=== PATIENT | female | born 1985 | race Hispanic/Latino ===

== ENCOUNTER 2017-12-10 08:25 | Emergency (ER) | payer BC, OTHER ==
[2017-12-10] MEDS ORDERED: SODIUM CHLORIDE 0.9% 1000ML 1,000 ML IV ONE (10:06)
[2017-12-10] MEDS ORDERED: LORAZEPAM 2 MG/ML 1 ML VIAL ONE (10:07)
[2017-12-10] MEDS ORDERED: ONDANSETRON HCL 4 MG/2 ML VIAL ONE (10:10)
[2017-12-10] MEDS ORDERED: FAMOTIDINE/PF 20 MG/2 ML VIAL IV ONE (10:10)
[2017-12-10 10:11] LABS: BASOPHILS % (AUTO) 1.1 % (0.0-5.0); EOSINOPHILS % (AUTO) 0.2 % (0.0-8.0); HEMATOCRIT 41.3 % (36-48); LYMPHOCYTES % (AUTO) 19.7 % (21.0-51.0); MEAN CORPUSCULAR HEMOGLOBIN 28.9 pg (27.0-33.0); MEAN CORPUSCULAR HGB CONC 33.5 g/dL (32.0-36.0); MEAN CORPUSCULAR VOLUME 86.3 fL (79-99); MONOCYTES % (AUTO) 4.8 % (3.0-13.0); NEUTROPHILS % (AUTO) 74.2 % (40.0-77.0); PLATELET COUNT (AUTO) 374 K/uL (130-400); RED BLOOD CELL COUNT(AUTO) 4.78 MIL/uL (4.00-5.50); RED CELL DISTRIBUTION WIDTH 13.7 % (11.0-15.5); WHITE BLOOD COUNT (AUTO) 12.3 K/uL (4.8-10.8)
[2017-12-10 10:19] LABS: POTASSIUM 3.9 mmol/L (3.5-5.1)
[2017-12-10 10:26] LABS: ALBUMIN 3.7 g/dL (3.5-5.0); BILIRUBIN,TOTAL 0.5 mg/dL (0.2-1.0); TOTAL PROTEIN, SERUM 7.6 g/dL (6.0-8.3)
[2017-12-10 11:00] LABS: APPEARANCE,URINE Clear (CLEAR); BILIRUBIN,URINE Negative (NEGATIVE); COLOR,URINE Yellow (YELLOW); GLUCOSE, URINE (UA) Negative (NEGATIVE); KETONES,URINE Trace mg/dL (NEGATIVE); LEUKOCYTE ESTERASE ,URINE Negative (NEGATIVE); NITRATE,URINE Negative (NEGATIVE); OCCULT BLOOD,URINE Negative (NEGATIVE); PH,URINE 5.5 (5.0-8.0); PROTEIN,URINE Negative (NEGATIVE); UROBILINOGEN,URINE 0.2 mg/dL (0.2-1.0)
[2017-12-10 11:07] LABS: HCG,QUAL RESULT NEGATIVE (NEGATIVE)
[2017-12-10 11:13] LABS: BACTERIA,URINE Rare /HPF (None Seen); MUCUS,URINE Few LPF (None Seen); SQUAMOUS EPITHELIAL CELL,UR Few /HPF (0-2); WBC,URINE 0-1 /HPF (0-1)
== END 2017-12-10 13:11 | disposition home or self-care (01) ==
LOC: EDH 08:25
DX: R07.89 Other chest pain (principal); K22.4 Dyskinesia of esophagus; K29.70 Gastritis, unspecified, without bleeding; F14.10 Cocaine abuse, uncomplicated; Z98.890 Other specified postprocedural states; Z72.0 Tobacco use
CPT/HCPCS: 36415; 71046; 80053; 81001; 81025; 84484 ×2; 85025; 93005 ×2; 96361; 96374; 96375; 99285; J2060; J2405; J3490; J7030

== ENCOUNTER 2021-05-26 15:48 | Emergency (ER) | payer BC, MEDICAID ==
[~2021-05-26] VITALS: Ht 165.1 cm; Wt 99.8 kg
[2021-05-26 16:21] VITALS: BP 112/74
[2021-05-26] MEDS ORDERED: DEXAMETHASONE SOD PHOSPHATE 4 MG/ML 1ML VIAL IM SCH (16:30)
[2021-05-26] MEDS ORDERED: HYDROCODONE/ACETAMINOPHEN 5/325 MG TAB PO ONE (16:30)
[2021-05-26 16:46] LABS: MEAN CORPUSCULAR HEMOGLOBIN 29.9 pg (27.0-33.0); MEAN CORPUSCULAR HGB CONC 32.8 g/dL (32.0-36.0); MEAN CORPUSCULAR VOLUME 91.1 fL (79-99); PLATELET COUNT (AUTO) 410 K/uL (130-400); RED BLOOD CELL COUNT(AUTO) 4.72 MIL/uL (4.00-5.50); WHITE BLOOD COUNT (AUTO) 8.5 K/uL (4.8-10.8)
[2021-05-26 17:05] LABS: CREATININE 1.2 mg/dL (0.5-1.5); POTASSIUM 4.6 mmol/L (3.5-5.1)
[2021-05-26 17:11] LABS: BASOPHILS % (MANUAL) 2 % (0-2); EOSINOPHILS % (MANUAL) 3 % (1-6); LYMPHOCYTES % (MANUAL) 23 % (22-44); MAN.DIFF COMMENT-IMPRESSION MANUAL DIFFERENTIAL; MONOCYTES % (MANUAL) 4 % (2-9); SEGMENTED NEUTROPHILS % 68 % (40-70)
[2021-05-26 17:12] LABS: PLATELET MORPHOLOGY COMMENT SLIGHT INCREASED
[2021-05-26] MEDS ORDERED: METH4TAB PO (17:18)
[2021-05-26] MEDS ORDERED: ACET1TAB25 PO (17:18)
[2021-05-26] MEDS ORDERED: CYCL10TA16 PO (17:18)
[2021-05-26] MEDS ORDERED: IBUP-2070 PO (17:18)
[2021-05-27] MEDS ORDERED: ACET1TAB25 PO (12:15)
== END 2021-05-26 17:32 | disposition home or self-care (01) ==
LOC: EDH 15:48 → EDBD 15:48 → EDUNIT# 15:48 → EDH 17:32
DX: M54.50 Low back pain, unspecified (principal); M54.2 Cervicalgia; F41.9 Anxiety disorder, unspecified
CPT/HCPCS: 36415; 72125; 74176; 80048; 81025; 85025; 96372; 99284; J1100

== ENCOUNTER 2021-05-27 08:44 | Emergency (ER) | payer MEDICAID ==
[~2021-05-27] VITALS: Ht 165.1 cm; Wt 99.8 kg
[~2021-05-27 08:44] MED LIST: ACET1TAB25 PO; CYCL10TA16 PO; IBUP-2070 PO; METH4TAB PO
[2021-05-27] MEDS ORDERED: HYDROCODONE/ACETAMINOPHEN 5/325 MG TAB PO SCH (09:30)
[2021-05-27] MEDS ORDERED: ACET1TAB25 PO (12:15)
[2021-05-27] MEDS ORDERED: KETOROLAC 30MG VIAL (30MG/ML) IM SCH (12:30)
[2021-05-27 12:58] VITALS: BP 136/84
== END 2021-05-27 13:02 | disposition home or self-care (01) ==
LOC: EDH 08:44
DX: M51.36 Other intervertebral disc degeneration, lumbar region (principal); F41.9 Anxiety disorder, unspecified; Z79.1 Long term (current) use of non-steroidal anti-inflammatories (NSAID); Z79.52 Long term (current) use of systemic steroids
CPT/HCPCS: 72148; 96372; 99284; J1885

== ENCOUNTER 2021-06-12 11:41 | Emergency (ER) | payer MEDICAID ==
[~2021-06-12] VITALS: Ht 165.1 cm; Wt 99.8 kg
[2021-06-12] MEDS ORDERED: FENTANYL 50 MCG/HR PATCH TD SCH (13:00)
[2021-06-12] MEDS ORDERED: NAPR-1180 PO (13:05)
[2021-06-12] MEDS ORDERED: CYCL10TA16 PO (13:05)
[2021-06-12 13:46] VITALS: BP 138/81
== END 2021-06-12 13:53 | disposition home or self-care (01) ==
LOC: EDH 11:41
DX: M54.50 Low back pain, unspecified (principal); G89.29 Other chronic pain; F41.9 Anxiety disorder, unspecified; Z79.899 Other long term (current) drug therapy

== ENCOUNTER 2022-03-04 09:45 | Emergency (ER) | payer BC, MEDICAID ==
[~2022-03-04] VITALS: Ht 165.1 cm; Wt 105.7 kg
[~2022-03-04 09:45] MED LIST changes: +ACET-2079 PO; -ACET1TAB25 PO; +NAPR-1180 PO
[2022-03-04 10:14] LABS: BASOPHILS % (AUTO) 0.5 % (0.0-5.0); EOSINOPHILS % (AUTO) 3.2 % (0.0-8.0); HEMATOCRIT 42.8 % (36-48); LYMPHOCYTES % (AUTO) 31.4 % (21.0-51.0); MEAN CORPUSCULAR HEMOGLOBIN 29.2 pg (27.0-33.0); MEAN CORPUSCULAR HGB CONC 33.9 g/dL (32.0-36.0); MEAN CORPUSCULAR VOLUME 86.3 fL (79-99); MONOCYTES % (AUTO) 5.9 % (3.0-13.0); NEUTROPHILS % (AUTO) 58.6 % (40.0-77.0); PLATELET COUNT (AUTO) 420 K/uL (130-400); RED BLOOD CELL COUNT(AUTO) 4.96 MIL/uL (4.00-5.50); RED CELL DISTRIBUTION WIDTH 13.2 % (11.0-15.5); WHITE BLOOD COUNT (AUTO) 8.1 K/uL (4.8-10.8)
[2022-03-04 10:20] LABS: POTASSIUM 4.4 mmol/L (3.5-5.1)
[2022-03-04 10:21] LABS: APPEARANCE,URINE CLEAR (CLEAR); BILIRUBIN,URINE NEGATIVE (NEGATIVE); COLOR,URINE YELLOW (YELLOW); GLUCOSE, URINE (UA) NEGATIVE (NEGATIVE); KETONES,URINE NEGATIVE (NEGATIVE); LEUKOCYTE ESTERASE ,URINE NEGATIVE (NEGATIVE); NITRATE,URINE NEGATIVE (NEGATIVE); OCCULT BLOOD,URINE MODERATE (NEGATIVE); PROTEIN,URINE NEGATIVE (NEGATIVE); UROBILINOGEN,URINE 0.2 mg/dL (0.2-1.0)
[2022-03-04 10:25] LABS: ALBUMIN 3.7 g/dL (3.5-5.0); TOTAL PROTEIN, SERUM 7.9 g/dL (6.0-8.3)
[2022-03-04 10:27] LABS: INR 0.93 (0.85-1.15); PROTHROMBIN TIME 9.8 SEC (9.6-11.6)
[2022-03-04 10:28] LABS: PARTIAL THROMBOPLASTIN TIME 26.1 SEC (26.3-35.5)
[2022-03-04 10:40] LABS: B-TYPE NATRIURETIC PEPTIDE 7 pg/mL (0-100)
[2022-03-04 10:43] LABS: BACTERIA,URINE Rare /HPF (None Seen); RBC,URINE 0-1 /HPF (0-1); SQUAMOUS EPITHELIAL CELL,UR Rare /HPF (0-2); WBC,URINE 0-1 /HPF (0-1)
[2022-03-04 11:49] VITALS: BP 127/79
[2022-03-04] MEDS ORDERED: VALA10002 PO (12:20)
[2022-03-04] MEDS ORDERED: PRED20TA3 PO (12:20)
[2022-03-04] MEDS ORDERED: PREDNISONE 20 MG TABLET PO ONE (12:30)
== END 2022-03-04 12:27 | disposition home or self-care (01) ==
LOC: EDH 09:45
DX: G51.0 Bell's palsy (principal); I10 Essential (primary) hypertension; F17.210 Nicotine dependence, cigarettes, uncomplicated; Z79.1 Long term (current) use of non-steroidal anti-inflammatories (NSAID); Z79.52 Long term (current) use of systemic steroids
CPT/HCPCS: 36415; 70450; 70551; 71045; 80053; 81001; 82550; 83721; 83880; 84484; 85025; 85610; 85730; 93005

== ENCOUNTER 2022-12-05 07:42 | Emergency (ER) | payer BC, MEDICAID ==
[~2022-12-05] VITALS: Ht 165.1 cm; Wt 100.7 kg
[~2022-12-05 07:42] MED LIST changes: +PRED20TA3 PO; +VALA10002 PO
[2022-12-05] MEDS ORDERED: SOLU-MEDROL 125MG VIAL IVP ONE (09:00)
[2022-12-05] MEDS ORDERED: CYCLOBENZAPRINE HCL 10 MG TABLET PO ONE (09:00)
[2022-12-05] MEDS ORDERED: METH4TAB3 PO (10:04)
[2022-12-05] MEDS ORDERED: CYCL5TAB PO (10:07)
[2022-12-05 10:14] VITALS: BP 138/82
== END 2022-12-05 10:24 | disposition home or self-care (01) ==
LOC: EDH 07:42
DX: M79.18 Myalgia, other site (principal); I10 Essential (primary) hypertension; F41.9 Anxiety disorder, unspecified; G89.29 Other chronic pain; F17.200 Nicotine dependence, unspecified, uncomplicated; Z60.2 Problems related to living alone; Z79.899 Other long term (current) drug therapy
CPT/HCPCS: 99283; 96374; 72100; J2930

== ENCOUNTER 2022-12-10 22:27 | Emergency (ER) | payer MEDICAID ==
[~2022-12-10 22:27] MED LIST changes: +CYCL5TAB PO; +METH4TAB3 PO
[2022-12-10] MEDS ORDERED: GABA300C PO (22:56)
[2022-12-10] MEDS ORDERED: CYCL-309 PO (22:56)
[2022-12-10] MEDS ORDERED: IBUP-1493 PO (22:56)
[2022-12-10] MEDS ORDERED: KETOROLAC 60 MG VIAL (30MG/ML) IM ONE (23:00)
[2022-12-10 23:23] VITALS: BP 115/72
== END 2022-12-10 23:30 | disposition home or self-care (01) ==
LOC: EDH 22:27
DX: M79.18 Myalgia, other site (principal); G89.29 Other chronic pain; F17.200 Nicotine dependence, unspecified, uncomplicated; Z79.899 Other long term (current) drug therapy; Z60.2 Problems related to living alone
CPT/HCPCS: 99283; 96372; J1885

== ENCOUNTER 2023-03-04 10:45 | Emergency (ER) | payer MEDICAID ==
[~2023-03-04] VITALS: Ht 165.1 cm; Wt 127.0 kg
[~2023-03-04 10:45] MED LIST changes: +CYCL-309 PO; +GABA300C PO; +IBUP-1493 PO
[2023-03-04] MEDS ORDERED: KETOROLAC 30MG VIAL (30MG/ML) IM ONE (11:30)
[2023-03-04] MEDS ORDERED: CYCLOBENZAPRINE HCL 10 MG TABLET PO ONE (11:30)
[2023-03-04 12:29] LABS: APPEARANCE,URINE CLEAR (CLEAR); BILIRUBIN,URINE NEGATIVE (NEGATIVE); COLOR,URINE YELLOW (YELLOW); GLUCOSE, URINE (UA) NEGATIVE (NEGATIVE); KETONES,URINE NEGATIVE (NEGATIVE); LEUKOCYTE ESTERASE ,URINE 25 Leu/uL (NEGATIVE); NITRATE,URINE NEGATIVE (NEGATIVE); OCCULT BLOOD,URINE NEGATIVE (NEGATIVE); PH,URINE 6.5 (5.0-8.0); PROTEIN,URINE 20 mg/dL (NEGATIVE); UROBILINOGEN,URINE 0.2 mg/dL (0.2-1.0)
[2023-03-04 12:39] LABS: ADD UA MICROSCOPIC YES
[2023-03-04 12:41] VITALS: BP 129/82; PULSE 75; RESP 18; O2SAT 98
[2023-03-04 12:41] LABS: BACTERIA,URINE RARE /HPF (None Seen); MUCUS,URINE FEW LPF (None Seen); SQUAMOUS EPITHELIAL CELL,UR FEW /HPF (0-2)
[2023-03-04] MEDS ORDERED: CYCL10TA16 PO (13:08)
[2023-03-04] MEDS ORDERED: SULF1TAB42 PO (13:08)
== END 2023-03-04 13:20 | disposition home or self-care (01) ==
LOC: EDH 10:45
DX: M51.36 Other intervertebral disc degeneration, lumbar region (principal); M54.50 Low back pain, unspecified; N39.0 Urinary tract infection, site not specified
CPT/HCPCS: 99285; 72131; 81001; 96372; J1885

== ENCOUNTER 2023-05-09 14:14 | Emergency (ER) | payer MEDICAID ==
[~2023-05-09 14:14] MED LIST changes: +SULF1TAB42 PO
== END 2023-05-09 16:29 | disposition left against medical advice (07) ==
LOC: EDH 14:14
DX: R11.2 Nausea with vomiting, unspecified (principal); R14.0 Abdominal distension (gaseous); Z53.21 Procedure and treatment not carried out due to patient leaving prior to being seen by health care provider

== ENCOUNTER 2023-06-11 19:14 | Emergency (ER) | payer MEDICAID, OTHER ==
[~2023-06-11] VITALS: Ht 157.5 cm; Wt 113.9 kg
[2023-06-11 22:48] VITALS: BP 135/68; PULSE 74; RESP 18; O2SAT 98
[2023-06-12] MEDS ORDERED: CYCL-309 PO
[2023-06-12] MEDS ORDERED: GABA300C PO
[2023-06-12] MEDS ORDERED: IBUP-1493 PO
== END 2023-06-12 00:12 | disposition home or self-care (01) ==
LOC: EDH 19:14
DX: G89.29 Other chronic pain (principal); M54.50 Low back pain, unspecified; M79.7 Fibromyalgia; F17.200 Nicotine dependence, unspecified, uncomplicated; Z79.899 Other long term (current) drug therapy; Z98.890 Other specified postprocedural states

== ENCOUNTER 2023-10-21 16:05 | Emergency (ER) | payer OTHER ==
[~2023-10-21] VITALS: Ht 162.6 cm; Wt 108.9 kg
[2023-10-21] MEDS ORDERED: METH4TAB3 PO (20:29)
[2023-10-21] MEDS ORDERED: CYCL-309 PO (20:29)
[2023-10-21] MEDS ORDERED: OMEP40CA21 PO (20:29)
[2023-10-21] MEDS ORDERED: IBUP-2077 PO (20:29)
[2023-10-21 21:04] VITALS: BP 136/86; PULSE 64; RESP 18; O2SAT 97
[2023-10-21] MEDS: CYCLOBENZAPRINE HCL 10 MG TABLET PO ONE (21:09)
[2023-10-21] MEDS: HYDROCODONE/ACETAMINOPHEN 5/325 MG TAB PO ONE (21:09)
[2023-10-21] MEDS: DEXAMETHASONE SOD PHOSPHATE 4 MG/ML 1ML VIAL IM ONE (21:09)
[2023-10-21] MEDS: IBUPROFEN 800 MG TAB PO ONE (21:09)
== END 2023-10-21 21:17 | disposition home or self-care (01) ==
LOC: EDH 16:08
DX: G89.29 Other chronic pain (principal); M47.816 Spondylosis without myelopathy or radiculopathy, lumbar region; M79.7 Fibromyalgia; F17.200 Nicotine dependence, unspecified, uncomplicated; Z79.899 Other long term (current) drug therapy; Z98.51 Tubal ligation status; Z98.890 Other specified postprocedural states
CPT/HCPCS: 99284; 72100; 96372; J1100